=== PATIENT | male | born 1990 | race Caucasian/White ===

== ENCOUNTER 2016-12-30 17:53 | Emergency (ER) | payer SELFPAY ==
[~2016-12-30] VITALS: Ht 193 cm; Wt 90.0 kg
[~2016-12-30 17:53] MED LIST: Z.0.NO CURRENT MEDS
[2016-12-30 17:54] VITALS: BP 139/93; PULSE 85; RESP 20; TEMP 97.6; O2SAT 100
[2016-12-30] MEDS ORDERED: CLINDAMYCIN INJ 600 MG in SODIUM CHLORIDE 0.9% INJ 100 ML IV ONE (21:45)
--- NOTE | 2016-12-30 21:45 | PD ---
HPI Chief Complaint: Skin Problem Time Seen by Provider: 21:41 Travel History International Travel<30 days: No Contact w/Intl Traveler<30days: No Traveled to known affect area: No History of Present Illness HPI Patient comes in complaining of possible abscess to his left lower back that began 2 days ago. Patient states progressively getting worse. He denies any drainage. Pain is burning and throbbing like in nature without radiation. Patient denies any fevers, nausea, vomiting, abdominal pain, loss change in bowel or bladder, or numbness or tingling anywhere. Patient denies anything like this in the past. Pain is worse with sitting or laying down. He denies anything making it better. Patient states he had similar on his left buttock cheek but it went away. PFS Past Medical History Medical History: Denies Significant Hx Immunizations Current: Yes Past Surgical History Surgical History: No Previous Surgery Social History Alcohol Use: No Tobacco Use: Yes Substance Use: Yes (HX IV HEROIN) Allergies-Medications (Allergen,Severity, Reaction): Coded Allergies: No Known Allergies (Verified , 01/02/09) Reported Meds & Prescriptions Reported Meds & Active Scripts Active Keflex (Cephalexin) 500 Mg Cap 500 Mg PO Q8H Bactrim DS (Sulfamethoxazole-Trimethoprim) 800-160 Mg Tab 1 Tab PO BID Review of Systems Except as stated in HPI: all other systems reviewed are Neg Physical Exam Narrative GENERAL: Well-developed, well nourished, in no acute distress, and non-ill appearing. SKIN: The area of erythematous is proximally 4 cm in greatest diameter noted left lower back superior to the left buttock cheek. It is erythematous, indurated, and tender without fluctuation, drainage, or crepitus. No Janeway lesions or splinter hemorrhages noted. HEAD: Atraumatic. Normocephalic. EYES: Pupils equal and round. EOMI. No scleral icterus. No injection or drainage. ENT: No nasal bleeding or discharge. Mucous membranes pink and moist. NECK: Trachea midline. No JVD. Supple. No nuclear rigidity. CARDIOVASCULAR: Regular rate and rhythm. No murmur appreciated. RESPIRATORY: No accessory muscle use. No respiratory distress. Clear to auscultation. Breath sounds equal bilaterally. MUSCULOSKELETAL: No obvious deformities. No clubbing. No cyanosis. No edema. Full range of motion. NEUROLOGICAL: Awake and alert. No obvious cranial nerve deficits. Motor grossly within normal limits. Normal speech. PSYCHIATRIC: Appropriate mood and affect; insight and judgment normal. Data Data Last Documented VS Vital Signs Date Time Temp Pulse Resp B/P Pulse Ox O2 Delivery O2 Flow Rate FiO2 12/30/16 17:54 97.6 85 20 139/93 100 Room Air Orders Clindamycin Inj (Cleocin Inj) (12/30/16 21:45) MDM Medical Decision Making Medical Screen Exam Complete: Yes Emergency Medical Condition: Yes Differential Diagnosis Abscess, cellulitis, pilonidal cyst, folliculitis, other Narrative Course The patient has no evidence of obvious abscess at this time. The patient will be discharged on antibiotics for cellulitis with possible early/immature abscess. Clinical suspicion, diagnosis and care management was discussed. The patient was given signs and symptoms warnings for worsening infection, such as spreading of redness, increasing pain, and/or swelling, associated heat, pus or fever and instructed to return immediately if these signs or symptoms worsen. The patient is to return in 2 days for recheck for maturity. Sooner if worsens or as needed. The patient agrees with plan. Patient in no obvious distress upon re-evaluation. Patient was asked if they wanted to speak to my attending, which the patient did not wish to do at this time. Any questions/concerns in reference to patient diagnosis/condition discussed and clarified prior to patient's discharge. Reinforced sheer importance of close follow up with patient's primary physician or primary care clinic and/or return here in 2 days for recheck. Instructed patient to return to ED immediately, if symptoms return/worsen. Pt showed understanding of above instructions. Further instructions and recommendations were detailed in discharge paperwork. Pt ambulated without difficulty out of ED at discharge. Diagnosis Primary Impression: Cellulitis Qualified Code: L03.312 - Cellulitis of back except buttock Patient Instructions: Cellulitis (ED), General Instructions Additional Instructions: Follow-up here in 2 days for recheck. Take all medication as prescribed. Apply warm compresses to affected area multiple times throughout the day to promote maturity. Return to the emergency department sooner if symptoms get worse fevers, unable tolerate fluids, chest pain, loss or change of bowel or bladder, numbness or tingling anywhere, shortness breath, or for other concerns.. Med/Other Pt SpecificInfo: Prescription(s) given Scripts Cephalexin (Keflex)500 Mg Dvw003 Mg PO Q8H #30 CAP Ref 0 Prov:Carlos Olsen MD 12/30/16 Sulfamethoxazole-Trimethoprim (Bactrim DS)800-160 Mg Tab1 Tab PO BID #20 TAB Ref 0 Prov:Carlos Olsen MD 12/30/16 Disposition: 01 DISCHARGE HOME Condition: Stable Paolo Marsh Dec 30, 2016 21:45
[2016-12-30] MEDS ORDERED: BACT800T5 PO (21:46)
[2016-12-30] MEDS ORDERED: CEPH-460 PO (21:46)
== END 2016-12-30 23:02 | disposition home or self-care (01) ==
LOC: NEPD 17:53
DX: L03.312 Cellulitis of back [any part except buttock and flank] (principal); Z79.899 Other long term (current) drug therapy; Z72.0 Tobacco use
CPT/HCPCS: 96365

== ENCOUNTER 2017-04-22 17:58 | Emergency (ER) | payer SELFPAY ==
[~2017-04-22 17:58] MED LIST changes: +BACT800T5 PO; +CEPH-460 PO; -Z.0.NO CURRENT MEDS
[2017-04-22 18:02] VITALS: BP 102/60; PULSE 117; RESP 16; TEMP 97.9; O2SAT 97
[2017-04-22 20:01] VITALS: BP 123/58; PULSE 92; RESP 16; O2SAT 98
[2017-04-22] MEDS ORDERED: ROBA750T PO (20:10)
[2017-04-22] MEDS ORDERED: IBUP-232 PO (20:10)
--- NOTE | 2017-04-22 20:10 | PD ---
HPI Chief Complaint: Musculoskeletal Complaint Time Seen by Provider: 19:54 Travel History International Travel<30 days: No Contact w/Intl Traveler<30days: No Traveled to known affect area: No History of Present Illness HPI 26-year-old male complains of bilateral lower extremity pain. Patient states the pain started about 2 months ago and has been persistent since then. Patient denies any headache. Patient denies any chest pain or shortness of breath. Patient denies abdominal pain. Patient denies any back pain. Patient denies any fever chills. Patient denies any injury to lower extremity. Patient has history IV drug abuse. Patient states the shooting up heroin daily including today. Patient states the pain aching pain diffuse over the lower extremity. Patient denies any pain radiation. Patient states that the pain mostly localized on the joint area. Patient also complains of left big toe pain. PFSH Past Medical History Medical History: Denies Significant Hx Immunizations Current: Yes Tetanus Vaccination: Unknown Influenza Vaccination: No Past Surgical History Surgical History: No Previous Surgery Social History Alcohol Use: No Tobacco Use: Yes Substance Use: Yes (HX IV HEROIN) Allergies-Medications (Allergen,Severity, Reaction): Coded Allergies: No Known Allergies (Verified , 01/02/09) Reported Meds & Prescriptions Reported Meds & Active Scripts Active Robaxin (Methocarbamol) 750 Mg Tab 750 Mg PO QID Ibuprofen 600 Mg Tab 600 Mg PO TID Review of Systems General / Constitutional: No: Fever Eyes: No: Visual changes HENT: No: Headaches Cardiovascular: No: Chest Pain or Discomfort Respiratory: No: Shortness of Breath Gastrointestinal: No: Abdominal Pain Genitourinary: No: Dysuria Musculoskeletal: Positive: Pain Skin: No Rash Neurologic: No: Weakness Psychiatric: No: Depression Endocrine: No: Polydipsia Hematologic/Lymphatic: No: Easy Bruising Physical Exam Narrative GENERAL: Well-nourished, well-developed patient. SKIN: Focused skin assessment warm/dry. HEAD: Normocephalic. EYES: No scleral icterus. No injection or drainage. NECK: Supple, trachea midline. No JVD or lymphadenopathy. CARDIOVASCULAR: Regular rate and rhythm without murmurs, gallops, or rubs. RESPIRATORY: Breath sounds equal bilaterally. No accessory muscle use. GASTROINTESTINAL: Abdomen soft, non-tender, nondistended. MUSCULOSKELETAL: No cyanosis, or edema. Mild diffuse tenderness over the lower extremity bilaterally. No redness swelling no deformity noted. Full range of motion lower extremity. BACK: Nontender without obvious deformity. No CVA tenderness. Neurologic exam: Patient's awake and alert oriented 3. Patient moves all extremity well. No obvious focal neurological deficit. Data Data Last Documented VS Vital Signs Date Time Temp Pulse Resp B/P (MAP) Pulse Ox O2 Delivery O2 Flow Rate FiO2 04/22/17 20:14 04/22/17 20:01 92 16 98 Room Air 04/22/17 18:02 97.9 Orders Orders Ibuprofen (Motrin) (04/22/17 20:15) Ed Discharge Order (04/22/17 20:11) [facility] Medical Decision Making Medical Screen Exam Complete: Yes Emergency Medical Condition: Yes Differential Diagnosis Differential diagnosis including musculoskeletal, sprain, strain, fracture, DVT , cellulitis. Narrative Course 26-year-old male with persistent low extremity pain. History IV drug abuse. I do not see any evidence of infection or spinal cord injury or abscess. I do not see any evidence of infection to lower extremity. Neurologic exam normal. Motrin 600 mg by mouth given. Diagnosis Primary Impression: Myalgia Patient Instructions: General Instructions Additional Instructions: Ibuprofen and Robaxin as needed for pain. Follow-up with local physician. Return if worse. Advised patient to stop IV drug abuse. Advised [facility] Med/Other Pt SpecificInfo: Prescription(s) given Scripts Methocarbamol (Robaxin) 750 Mg Tab 750 MG PO QID for Pain, #40 TAB 0 Refills Prov: Raffy Jansen MD 04/22/17 Ibuprofen (Ibuprofen) 600 Mg Tab 600 MG PO TID for Pain, #60 TAB 0 Refills Prov: Raffy Jansen MD 04/22/17 Disposition: 01 DISCHARGE HOME Condition: Stable Raffy Jansen MD Apr 22, 2017 20:10
[2017-04-22] MEDS ORDERED: IBUPROFEN 600 MG TAB PO ONE (20:15)
== END 2017-04-22 20:24 | disposition home or self-care (01) ==
LOC: NEPE 17:58
DX: M79.1 Myalgia (principal)
CPT/HCPCS: 99283

== ENCOUNTER 2017-06-08 15:15 | Emergency (ER) | payer SELFPAY ==
[~2017-06-08] VITALS: Ht 177.8 cm; Wt 50.0 kg
[~2017-06-08 15:15] MED LIST changes: -BACT800T5 PO; -CEPH-460 PO; +IBUP-232 PO; +ROBA750T PO
--- NOTE | 2017-06-08 16:13 | PD ---
HPI Chief Complaint: Code Blue Time Seen by Provider: 16:06 Travel History International Travel<30 days: No Contact w/Intl Traveler<30days: No Traveled to known affect area: No History of Present Illness HPI This is a 26-year-old male history of IVD drug use, questionable hepatitis C and HIV disease, who presents here in cardiac arrest by EMS. EMS reports they were called because he was having episodes of bloody emesis. They state that he was conversing with them and when they put him in the ambulance about long-term to the hospital, he became unresponsive. The relay engineer reports that he went into V. fib. Report is that they cardioverted him once. They also placed an IO needle. When he arrived he was being [id number] ventilated and CPR was in progress. There is no further history elicited. [facility] Past Medical History Immunizations Current: Yes ?: Not Social History Alcohol Use: No Tobacco Use: Yes Substance Use: Yes (HX IV HEROIN) Allergies-Medications (Allergen,Severity, Reaction): Coded Allergies: No Known Allergies (Verified , 01/02/09) Reported Meds & Prescriptions Reported Meds & Active Scripts Active Robaxin (Methocarbamol) 750 Mg Tab 750 Mg PO QID Ibuprofen 600 Mg Tab 600 Mg PO TID Review of Systems ROS Limitations: Unresponsive (patient is in cardiac arrest and unable to obtain any further review of systems.) Except as stated in HPI: all other systems reviewed are Neg Physical Exam Narrative GENERAL: Well-developed well-nourished male who appears jaundiced in cardiac arrest. SKIN: Focused skin assessment warm/dry. Patient had a yellow hue to his skin. HEAD: Atraumatic. Normocephalic. EYES: Pupils are fixed and dilated at 5 mm. Positive scleral icterus. No injection or drainage. ENT: No nasal bleeding or discharge. Mucous membranes pink and moist. NECK: Trachea midline. CARDIOVASCULAR: Patient had asystole on the monitor when he arrived. RESPIRATORY: Patient was initially being [id number] mental aerated. There were coarse rhonchi bilaterally. GASTROINTESTINAL: Abdomen soft, nondistended. No pulsatile masses ascitic appearance. MUSCULOSKELETAL: No obvious deformities. No clubbing. No cyanosis. No edema. Patient appeared jaundiced with trace bilateral pretibial edema. NEUROLOGICAL: Awake and alert 0. Patient was in cardiac arrest. [facility] Medical Decision Making Medical Screen Exam Complete: Yes Emergency Medical Condition: Yes Differential Diagnosis Acute cardiopulmonary arrest versus respiratory arrest versus massive GI bleed. Narrative Course 26-year-old male presents in cardiac arrest. The patient was having bloody vomiting when paramedics arrived. En route to the hospital he went unresponsive and into cardiac arrest. The patient had asystole on the monitor when he arrived. He apparently was in V. fib per the paramedics when he first arrested. An IO needle was placed. ACLS protocol was initiated. He was given 4 rounds of epinephrine followed by 2 rounds of bicarbonate. The patient remained in asystole. He was pronounced at 1528. Critical Care Narrative Aggregate critical care time was 45 minutes. Time to perform other separately billable procedures was not included in the critical care time. My time did not include minutes spent treating any other patients simultaneously or on activities that did not directly contribute to the patient's treatment. The services I provided to this patient were to treat and/or prevent clinically significant deterioration that could result in: I provided critical care services requiring my management, as noted below: Chart data review, documentation time, medication orders and management, vital sign assessments/reviewing monitor data, ordering and reviewing lab tests, ordering and interpreting/reviewing x-rays and diagnostic studies, care of the patient and discussion of the patient with the admitting physicians. Procedures Procedure Narrative Intubated emergently: Patient was intubated using an 8.0 ET tube with the [facility]. Colorimetric device a showed good change in color. Breath sounds were equal bilaterally with negative epigastric sounds. Diagnosis Primary Impression: acute cardiopulmonary arrest Additional Impressions: reported bloody emesis history of IVD drug use questionable hepatitis C questionable HIV disease Disposition: 20 Condition: Rusty Mack MD Jun 08, 2017 16:13
== END 2017-06-08 16:13 | disposition expired ==
LOC: NEPE 15:15
DX: I46.9 Cardiac arrest, cause unspecified (principal); K92.0 Hematemesis; Z72.0 Tobacco use
CPT/HCPCS: 31500